=== PATIENT | female | born 1980 | race Two or more races ===

== ENCOUNTER 2022-06-22 12:01 | Emergency (ER) | payer BC, OTHER ==
[~2022-06-22] VITALS: Ht 157.5 cm; Wt 114.9 kg
[2022-06-22 14:14] VITALS: BP 149/92
[2022-06-22] MEDS ORDERED: SUMA50TA2 PO (14:49)
[2022-06-22] MEDS ORDERED: TRIA50TA2 PO (14:49)
== END 2022-06-22 14:55 | disposition home or self-care (01) ==
LOC: ER 12:01
DX: G43.909 Migraine, unspecified, not intractable, without status migrainosus (principal); I10 Essential (primary) hypertension
CPT/HCPCS: 70450